=== PATIENT | female | born 1960 | race Caucasian/White ===

== ENCOUNTER → 2019-12-20 16:16 | Outpatient (REF) | payer OTHER, SELFPAY | LOC: ANHLAB 16:16 | PROVIDERS: PCP Family Medicine; Visit Provider Nurse Practitioner | DX: C43.4 Malignant melanoma of scalp and neck (principal) | CPT/HCPCS: 88305; 88342 ==

== ENCOUNTER → 2020-01-03 14:33 | Outpatient (REF) | payer OTHER, SELFPAY | LOC: ANHLAB 14:33 | PROVIDERS: PCP Family Medicine; Visit Provider Nurse Practitioner | DX: C43.4 Malignant melanoma of scalp and neck (principal) | CPT/HCPCS: 88305 ==

== ENCOUNTER → 2020-08-02 15:51 | Outpatient (REF) | payer OTHER, SELFPAY | LOC: ANHLAB 15:51 | PROVIDERS: PCP Family Medicine; Visit Provider Nurse Practitioner | DX: D49.2 Neoplasm of unspecified behavior of bone, soft tissue, and skin (principal) | CPT/HCPCS: 88305; 88342 ==

== ENCOUNTER → 2020-08-09 13:46 | Outpatient (REF) | payer OTHER, SELFPAY | LOC: ANHLAB 13:46 | PROVIDERS: PCP Family Medicine; Visit Provider Nurse Practitioner | DX: D49.2 Neoplasm of unspecified behavior of bone, soft tissue, and skin (principal) | CPT/HCPCS: 88305 ==

== ENCOUNTER → 2023-01-01 08:45 | Outpatient (CLI) | payer OTHER, SELFPAY ==
--- NOTE | ~2023-01-01 | MR_ITS ---
MRI of the left knee Clinical history: Pain Technique: Coronal proton density and proton density-weighted images, sagittal proton-density and T2 fat-sat images, and axial proton-density fat-saturated images were acquired. Findings: Anterior and posterior cruciate ligaments are intact. Medial collateral ligament and the la teral collateral ligament complex are intact. Popliteus tendon is intact. There is complex tearing of the posterior horn of the lateral meniscus, which is very diminutive. No definite medial meniscal tear identified. There is patchy high-grade chondromalacia of the lateral compartment. There is mild chondral thinning in the medial compartment. There is extensive moderate chondromalacia along lateral patellar facet. Femoral trochlear cartilage is relatively well-preserved. Extensor mechanism is intact. Moderate joint effusion is present. Small Chapman cyst present. Impression: Complex tearing of the posterior horn lateral meniscus, which is very diminutive. Patchy chondromalacia, worst in the lateral compartment and along the lateral patellar facet. Moderate joint effusion with small Chapman's cyst. Reviewed, dictated and finalized at location . Impression: Complex tearing of the posterior horn lateral meniscus, which is very diminutiv e. Patchy chondromalacia, worst in the lateral compartment and along the lateral p atellar facet. Moderate joint effusion with small Chapman's cyst.
== END ==
PROVIDERS: PCP Family Medicine; Visit Provider Family Medicine
DX: S83.282A Other tear of lateral meniscus, current injury, left knee, initial encounter (principal); M94.262 Chondromalacia, left knee; M71.22 Synovial cyst of popliteal space [Baker], left knee; X58.XXXA Exposure to other specified factors, initial encounter
CPT/HCPCS: 73721

== ENCOUNTER 2023-02-11 15:35 | Outpatient (RCR) | payer OTHER, SELFPAY ==
[2023-02-11 16:00] VITALS: BMI 34.5
[2023-02-11 16:24] VITALS: BMI 34.5
== END 2023-04-27 09:53 | disposition home or self-care (01) ==
LOC: ANHDMC 15:35
PROVIDERS: PCP Family Medicine; Visit Provider Physician Assistant
DX: R73.03 Prediabetes (principal); E66.9 Obesity, unspecified; Z71.3 Dietary counseling and surveillance
CPT/HCPCS: 97802

== ENCOUNTER 2024-11-18 14:49 | Outpatient (CLI) | payer OTHER, SELFPAY ==
--- NOTE | ~2024-11-18 | XR_ITS ---
XR ankle LT min 3V Ordering provider: Octavia Romo MD History: . S93.492A - Sprain of other ligament of left ankle, initia... . Comparison: None. FINDINGS: BONES: No acute fracture or dislocation. JOINT SPACES: The ankle mortise is normal. SOFT TISSUES: Soft tissue swelling over both malleoli. Calcaneal spur. Ossification of the insertion of the tendo Achilles. IMPRESSION: No acute osseous abnormality left ankle. Reviewed, dictated and finalized at location A.
--- OUTSIDE RECORDS SUMMARY | 2024-11-18 15:07 | XMS_ITS | Continuity of Care Document ---
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 Name Role Phone Melissa BURDICK FACS, Geovanny Unavailable Unavailabl e Allergies, Adverse Reactions, Alerts Substance Reaction Status Criticality No Known Allergies Active No Inform ation Medications Medication Instructions Dosage Effective Dates (start - stop) Status Comments Combigan 0.2 %-0.5 % eye drops 1 drop bid in OD only - Active Jardiance 10 mg tablet take 1 tablet by oral route every day in the morning 10 MG - Active Januvia 100 mg tablet take 1 tablet by o ral route every day 100 MG - Active rosuvastatin 10 mg tablet take 1 tablet by oral route every day 10 MG - Active metformin 1,000 mg tablet take 1 tablet by oral route 2 times every day with morning and evening meals 1000 MG - Active lisinopril 10 mg tablet take 1 tablet by oral route every day 10 MG - Active levothyroxine 50 mcg tablet take 1 tablet by oral route every day 50 MCG - Active Artificial Tears ([id number] rin) 1 %-0.2 %-0.2 % eye drops - Active Procedures Procedure Date Ophth Serv: Med Exam; Interm E 20 Epilation Of Lashes Est Pt Exp Prob Focused Visual Lynch, Extended Est Pt Exp Prob Focused Postop F/u Visit [facility] Optical [facility]herence [facility] Facility Fee Cataract Extraction 2016 Postop F/u Visit [facility] Extracapsular Cataract Remov I 17 Anes- Eye; Lens Surg Postop F/u Visit [facility] Postop F/u Visit [facility] Postop F/u Visit [facility] Extracapsular Cataract Remov I 17 Facility Fee Cataract Extraction 2016 Anes- Eye; Lens Surg Optical Coherence Biometry Est Pt Complete Est Pt Exp Prob Focused Optical Coherence Biometry [place] Pachymetry Epilation Of Lashes Scan Computerized; Retina New Pt Complete Patient Surgery Education Advance Directives Directive Yes / No Effective Date File Name No Information Encounters Encounter Description Practice Location Reason(s) For Visit Diagnoses Date Provider Providers Copied on Encounter [facility], [address] [place], [place], [id number], [place] tel:[phone] [place] 350 Surgery No Information 0 Melissa Small. [address] [place], [place], [id number], [place]. tel:[phone] [facility], [address] [place], [place], [id number], [place] tel:[phone] [facility] [place] Monocular esotropia, right eye 0 Carkathy Chaudhari. [address] [place], [place], [id number], [place]. tel:[phone] Referring Provider: Luly Claudio, [address] [place], [address] . tel:[phone] Est Pt Exp Prob Focused [facility], [address] [place], [place], [id number], [place] tel:[phone] [facility] [place] 855 Open angle with borderline findings, high risk, bilateralTric hiasis without entropion, left lower lid Sep-2 6-201 7 González Arguetaca. [address] [place], [place], [id number], . tel:[phone] Referring Provider: Luly Claudio, [address] [place], [address] . tel:[phone] Est Pt Exp Prob Focused [facility], [address] [place], [place], [id number], tel:[phone] [facility] [place] 855 Open angle with borderline findings, high risk, bilateral Sep-2 2- 7 González Arguetaca. [address] [place], [place], [id number], . tel:[phone] Referring Provider: Luly Claudio, [address] [place], [address] . tel:[phone] [facility], [address], [place], [id number], tel:[phone] [facility] [place] 855 no complaints OU (chief complaint) Presence of intraocular lens Jan-2 7 González Mauricio. [address] [place], [place], [id number], . tel:[phone] Referring Provider: Timmy Jones, [address], [address] . tel:[phone] [facility], [address] [place], [place], [id number], tel:[phone] [facility] [place] 5250 No Information Jan-0 5 7 Chan Warner. [address] [place], [place], [id number], . tel:[phone] Referring Provider: Timmy Jones, [address] [place], [address] . tel:[phone] [facility], [address] [place], [place], [id number], tel:[phone] [facility] [place] No Information Osman-0 5-201 7 [facility]. [address] [place], [place], [id number], . tel:[phone] Referring Provider: Timmy Jones, [address] [place], [address] . tel:[phone] [facility], [address] [place], [place], [id number], tel:[phone] [facility] [place] 5250 blurry vision OD (chief complaint) Presence of intraocular lens Jovanni-3 0-201 7 Ibrahima Ibrahima. [address] [place] [address], [id number], . tel:[phone] Referring Provider: Timmy Jones, [address], [address] . tel:[phone] [facility], [address] [place], [place], [id number], tel:[phone] [place] 5250 Surgery No Information Jovanni-3 0-201 7 Chan Warner. [address] [place] [address], [id number], . tel:[phone] Referring Provider: Luly Claudio, [address], [address] . tel:[phone] [facility], [address], [place], [id number], tel:[phone] [facility] [place] No Information Jovanni-3 0-201 7 No Information Referring Provider: Timmy Jones, [address], [address] . tel:[phone] [facility], [address] [place], [place], [id number], tel:[phone] [facility] [place] 855 Presence of intraocular lens Jovanni-2 3-201 7 González Mauricio. [address] [place], [place], [id number], [place]. tel:[phone] Referring Provider: Timmy Jones, [address] [place], [address] . tel:[phone] [facility], [address], [place], [place], [id number], [place] tel:[phone] [facility] [place] 5250 blurry vision OD (chief complaint) Presence of intraocular lens Yessenia Sewell. [address], [place], [place], [id number], [place]. tel:[phone] Referring Provider: Donato Casas, [address] [place], [place], [address] . tel:[phone] [facility], [address] [place], [place], [id number], [place] tel:[phone] [facility] [place] 5250 Presence of intraocular lens Yessenia Sewell. [address] [place], [place], [place], [id number], [place]. tel:[phone] Referring Provider: Timmy Jones, [address] [place], [place], [address] . tel:[phone] [facility], [address] [place], [place], [id number], [place] tel:[phone] [place] [facility]250 Surgery No Information Atodarichema Warner. [address], [place], [place], [id number], [place]. tel:[phone] Referring Provider: Luly Claudio, [address] [place], [address] . tel:[phone] [facility], [address], [id number], [place] tel:[phone] [facility] [place] No Information 7 [facility] [place]. [address], [place], [place], [id number], [place]. tel:[phone] Referring Provider: Timmy Jones, [address] [place], [address] . tel:[phone] [facility], [address] [place], [place], [id number], [place] tel:[phone] [facility], [place] No Information Jovanni- Eriwn Devyn. [address], [place], [place], [id number], [place]. tel:[phone] Referring Provider: Timmy Jones, [address] [place], [address] . tel:[phone] [facility], [address] [place], [place], [id number], [place] tel:[phone] [facility] [place] Age-related nuclear cataract, left eyeAge-relate d nuclear cataract, right eyeOpen angle with borderline findings, high risk, bilateralOthe r vitreous opacities, bilateralFuch s' dystrophyTear film insufficiency of bilateral lacrimal glands Chan Warner. [address] [place], [place], [place], [id number], [place]. tel:[phone] Referring Provider: Luly Claudio, [address] [place], [address] . tel:[phone] Est Pt Exp Prob Focused [facility], [address] [place], [place], [id number], [place] tel:[phone] [facility] [place] 5250 Encounter for other preprocedural examination Cesar Norman. [address] [place], [place], [id number], [place]. tel:[phone] Referring Provider: Luly Claudio, [address] [place], [address] . tel:[phone] [facility], [address], [place], [id number], tel:[phone] [facility] [place] [address]55 No Information 7 Chan Warner. [address], [place], [id number], . tel:[phone] Referring Provider: Timmy Jones, [address] [place] [address], [address] . tel:[phone] [facility], [address] [place] [address], [id number], tel:[phone] [facility] [place] 855 Combined forms of age-related cataract, bilateralOthe r vitreous opacities, bilateralTric hiasis without entropion, left lower lidOpen angle with borderline findings, high risk, bilateralKera toconjunctivi tis sicca, bilateral 7 González Mauricio. [address] [place] [address], [id number], . tel:[phone] Referring Provider: Luly Claudio, [address] [place] [address], [address] . tel:[phone] [facility], [facility] [address], [id number], tel:[phone] [facility] [place] [address]55 No Information 7 [facility]. [address], [facility], . tel:[phone] Referring Provider: [facility] , [address] [place] [address], [facility]. tel:[phone] Family History Family Member Type Diagnosis Age At Onset Mother Problem (finding) Diabetes mellitus Father Problem (finding) Diabetes mellitus Payers Payer name Insurance type Covered alliance party ID Authoriza tion(s) No Information Social History Type Description Quantity Date Captured Comments Sex Female Smoking Status No Information Chief Complaint And Reason For Visit No Information Reason For Referral Reason For Referral No Information Plan Of Treatment Date Type Action Status Future Order: Radiology Order OC T Optic Nerve (RNFL) (99469), Ordered on: Ordered Future Order: Radiology Order OC T Retina (73901), Ordered on: Ordered History Of Present Illness Encounter Date Complaint History Of Prese nt Illness no complaints no complaints OU blurry vision blurry vision OD no complaints , VA is great no complaints , VA is great OS Feeling much better, VA is a little blurry Feeling much better, VA is a little blurry OS blurry vision blurry vision OD soreness, fbs, and t earing. Vision is improving. Has soreness, fbs, and tearing. Vision is improving. Has had a few flashes of light this morning temporally. OS soreness, fbs, and t earing. Vision is improving. Has soreness, fbs, and tearing. Vision is improving. Has had a few flashes of light this morning temporally. OS Functional Status Date Functional Assessmen t No Information Instructions Date Instruction Additional Infor alix - Decompensating alistair peterson. Pt has CRET. 4 GABY over OD gave clear, comfortable vision.Recommend 2 GABY over OD, [address] Escamilla for primary eye care. Notes sent. Related to Monocular esotropia, right eye - IOP OD much improv ed on Combigan. Pt denies pain. No rebound iritis s/p cataract surgery few months ago.RNFL OCT 3/17 WNL OD and borderline OS (poor scan due to cataract)VF 9/17 full OU. Continue Combigan BID OD (rx issued to [facility], consider generic Cosopt if too costly) and f/u in ~1 month. Pt educ on findings and importance of monitoring to prevent vision loss. Consider trial s gtts next visit. Related to Open angle with borderline findings, high risk, bilateral - Epilated one lash in office today. Pt educ. 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 Pt denies pain. No rebound iritis s/p cataract surgery few months ago.RNFL OCT 3/17 WNL OD and borderline OS (poor scan due to cataract)VF 9/17 full OU. Due to elevated IOP, start Combigan BID OD (sample given) and f/u in few days. Denies lung dz. Pt educ on findings and importance of monitoring to prevent vision loss. Related to Open angle with borderline findings, high risk, bilateral - Discussed cataract diagnosis with the patient. Risks and benefits of surgical treatment were discussed and understood. Patient elects surgical treatment. Premium options discussed but patient declines and is ok with using glasses after surgery. Patient desires Surgery OS first. after further discussion, does not want monovision (( AIM -0.25 OU: TRIMOXI, NO ORA OU, NO LRI OU: Declined AMP, glaucoma coverage - fuch's )) Discussed with pt the need for glasses after surgery. discussed delayed healing and higher risks with dense lens, fuch's Related to Age-related nuclear cataract, left eye - art tears, Discuss ed with patient, understands this may limit vision after surgery. 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 Discussed with patient, understands this may limit vision after surgery. Related to Open angle with borderline findings, high risk, bilateral - Discussed signs an d symptoms of retinal detachment (flashes,floaters, curtain) as precaution . Patient instructed to call or return to clinic if condition gets worse. Discussed with patient, understands this may limit vision after surgery. Related to Other vitreous opacities, bilateral - PLAN: OK to to pro ceed with cataract surgery after first eye cleared. Related to Age-related nuclear cataract, right eye - Due to cupping OU and elevated IOPs [address] p[address] RNFL OCT 09/19 WNL OD and borderline OS (poor scan due to cataract)Schedule VF after cataract surgery. Pt educ on findings and importance of monitoring. Related to Open angle with borderline findings, high risk, bilateral - Discussed cataract diagnosis with the patient. Discussed and reviewed treatment options for cataracts. Patient elects surgical treatment. Recommend surgery OU, OS first. Aim OD: [place]. Aim OS: [place]. Discussed monovision as well, she will consider.ATIOLs at surgeon's discretion, Fuchs OD>OS. MAC OCT WNL OU. Related to Combined forms of age-related cataract, bilateral - Pt educ on finding s. Retinas are flat and attached OU. Reviewed s/sx of RD and to call lamin if occurs. MAC OCT WNL OU. Related to Other vitreous opacities, bilateral - With nocturnal lag ophthalmos. Discussed lorenzo QHS/sleep mask and turn off ceiling fan (sleeps with fan on), can try humidifier. Discussed rx gtts for dry eye, defers for now. Monitor. Related to Keratoconjunctivitis sicca, bilateral - Epilated 1 lash fr om LLL in office. 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
--- OUTSIDE RECORDS SUMMARY | 2024-11-18 15:07 | XMS_ITS | Clinical Summary ---
Author Organization [facility] Medical Office Building [address] [place] [id number] Care Team Providers Care Voice Teacher Name Role Phone Tad Guardado MD Primary Care Provider Allergies Active Allergy Reactions Criticality Noted Date Comments Adhesive Other (See comments) Low 05/04/2024 Latex Medications amLODIPine (NORVASC) 10 mg tablet 2 Active metFORMIN XR (GLUCOPHAGE XR) 500 mg 24 hr tablet 2 Active triamterene-hyd roCHLOROthiazid e 37.5-25 mg per tablet 2 Active Anoro Ellipta 62.5-25 mcg/actuation blister with device 2 Active traZODone (DESYREL) 50 mg tablet 2 Active phentermine 37.5 mg capsule Take 1 capsule (37.5 mg total) by mouth daily 2 Active losartan (COZAAR) 100 mg tablet Take 1 tablet (100 mg total) by mouth daily Active rOPINIRole (REQUIP) 0.5 mg tablet Take 1 tablet (0.5 mg total) by mouth 3 (three) times a day Active alendronate (FOSAMAX) 10 mg tablet Take 1 tablet (10 mg total) by mouth daily before breakfast Take in the morning with a full glass of water, on an empty stomach, and do not take anything else by mouth or lie down for the next 30 min. Active gabapentin (NEURONTIN) 100 mg capsule [address] SPRINKLER Thyroid 60 mg tablet 4 Active albuterol HFA (PROVENTIL HFA,VENTOLIN HFA,PROAIR HFA) 90 mcg/actuation inhalerIndicati ons:Centrilobul ar emphysema (HCC) Inhale 2 puffs every 6 (six) hours as needed for wheezing Fill per patient's formulary 1 each 3 4 Active Active Problems Problem Noted Date Diagnosed Date Need for immunization against influenza 04/25/20 22 Centrilobular emphysema 10/18/2021 Assessment & Plan (05/04/2024 10:15 AM CDT): Due to continued symptoms, patient will continue with Anoro. The patient has an albuterol inhaler to use on a p.r.n. basis and up to 4 times a day as needed for symptom control Assessment & Plan (05/01/2023 10:36 AM CDT): The patient will continue with Anoro. She states that she is out of the albuterol. I have reordered the albuterol inhaler. The patient denied respiratory symptoms at this time Assessment & Plan (04/25/2022 8:44 AM CDT): Patient continue to use her Anoro one inhalation once a day. Patient continue to use her albuterol inhaler as needed up to 4 times a day for shortness of breath. Assessment & Plan (10/18/2021 8:33 AM CDT): The patient is PFTs from August 2021 are consistent with stage II COPD. She has had symptomatic relief with use of Anoro 1 puff daily. I will order albuterol MDI and give her a spacer to have her use 2 puffs q.i.d. p.r.n.. She otherwise will follow up here in 6 months. Personal history of tobacco use 10/18/2021 Assessment & Plan (05/04/2024 10:14 AM CDT): The patient continues to be tobacco free since 2015. She has a 36 pack year history. I have ordered the patient a lung cancer screening CT for April of 2025 Assessment & Plan (05/01/2023 10:36 AM CDT): The patient continues to be tobacco free. She has a history of 1 pack per day for 36 years. She quit in 2015 Assessment & Plan (04/25/2022 8:45 AM CDT): The patient is going to get her CT scans put on a disc for us to upload into our radiology system. The patient will complete another low-dose screening CT scan for this year. The order has been placed. Assessment & Plan (10/18/2021 8:33 AM CDT): I have asked her to sign a release so that we can obtain a copy of her most recent screening chest CT that she had in 2020. Awaiting removal of contraceptive intrauterine d evice (IUD) 05/22/2015 Weight gain 10/05/2011 Abnormal mammogram 06/11/2011 Encounters Date Type Department Care Team Description 09/16/2024 12:46 PM CDT - 09/16/2024 11:59 PM CDT Hospital Encounter [facility] Medical Office Bl 1 Breast [facility] [address] [place] [address] [place] [address] Screening mammogram, encounter for Discharge Disposition: Discharge to home or self care from Last 3 Months Immunizations Immunization Administration Dates Next Due Influenza, Quadrivalent, Hig h Dose, Preservative Free, Intrr 05/01/2023 Influenza, Quadrivalent, Spl it, Preservative Free, Intramuscular 04/25/2022 Surgical History Surgery Date Site/Laterality Comments GALLBLADDER SURGERY Gallbladder Surgery - (Added by TW Conv) BUNIONECTOMY Hallux Valgus (Bunion) Correction - (Added by TW Conv) BREAST BIOPSY Medical History Medical History Date Comments Asthma Asthma - (Added by TW Conv) Family History Medical History Relation Name Comments Lymphoma Father Malignant Lymph cherelle - (Added by TW Conv) Diabetes Mother Diabetes Mellit us - (Added by TW Conv) Heart disease Mother Heart Disease - (Added by TW Conv) Stroke Mother Stroke Syndrome - (Added by TW Conv) Breast cancer Neg Hx Relation Name Status Comments Father Mother Social History Tobacco Use Types Packs/Day Years Used Date Smoking Tobacco: Former Cigarettes 1 35 Comments No Sex and Gender Information Value Date Recorded Sex Assigned at Not on file Legal Sex Female 6:47 PM NURSE OB Gender Identity Not on file Sexual Orientation Not on file Obstetrics History Para Term AB IAB SAB Ectopic Multiple Livin g Live Births 2 2 2 Date Outcome GA Total Labor Labor/2nd/3rd Weight Sex Type Anes PTL Barb A1 A5 Name Clin Term Term Last Filed Vital Signs Vital Sign Reading Time Taken Comments Blood Pressure 123/74 05/04/2024 9:58 AM CDT Pulse 62 05/04/2024 9:58 AM CDT Temperature 36.4 C (97.5 F) 05/04/2024 9:58 AM CDT Respiratory Rate 16 05/04/2024 9:58 AM CDT Oxygen Saturation 93% 05/04/2024 9:58 AM CDT Inhaled Oxygen Concentration - - Weight 84.4 kg (186 lb) 05/04/2024 9:58 AM CDT Height 157.5 cm (5' 2 ) 05/04/2024 9:58 AM CDT Body Mass Index 34.02 05/04/2024 9:58 AM CDT Plan of Treatment Health Maintenance Due Date Last Done Comments Colon Cancer Screening-Colonoscopy 1958 Depression Screening 1958 Fall Risk Assessment 1960 Hepatitis C Screening 1958 DTaP/Tdap/Td Vaccine (1 - Tdap) 1969 Hepatitis B Screening 1976 Pneumococcal vaccine 65+ (1 of 2 - PCV) 1977 Zoster Vaccine (1 of 2) 2008 Well Visit 65+ 2023 Covid-19 Vaccine (3 - 2023-2 5 season) 2024 08/23/2020, 07/31/2020 Influenza Vaccine (Season Ended) 2025 05/01/2023, 04/25/2022, 04/15/2020, Additional history exists Breast Cancer Screening-Mammogram 09/16/2025 09/16/2024, 07/22/2023, 07/22/2022, Additional history exists Osteoporosis Screening-Bone Density Scan 05/18/2026 05/18/2024, 03/01/2020 Procedures Procedure Name Priority Date/Time Associated Diagnosis Comments SCREENING MAMMOGRAM BILATERAL W ITZ Schedule Routine, Read Routine (OP Routine) 09/16/2024 1:00 PM CDT Screening mammogram, encounter for DEXA AXIAL SKELETON BONE DENSITY 1 OR MORE SITES Schedule Routine, Read Routine (OP Routine) 05/18/2024 8:56 AM NURSE OB Osteoporosis screening from Last 3 Months or Most Recently Relevant to Health Maintenance Results * Screening Mammogram Bilateral W Itz (09/16/2024 1:00 PM CDT) Anatomical Region Laterality Modality Breast Bilateral Mammography Impressions 09/16/2024 1:04 PM CDT BI-RADS ATLAS category (overall): 1 - Negative There is no mammographic evidence of malignancy. A 1 year screening mammogram is recommended. The patient has been or will be contacted. We recommend annual screening mammography for women at average risk of breast cancer beginning at age 40, based on guidelines of the [place] [employer] (ACR Practice Parameter for the Performance of Screening and Diagnostic Mammography) and [place] [employer]. For women with and elevated risk of breast cancer, please refer to the ACR Practice Parameter for specific screening recommendations. The patient will be entered into a reminder system with a target due date of 1 year for her next screening exam. Narrative 09/16/2024 1:04 PM CDT Screening Mammogram Bilateral W Itz: 09/16/24 The study was acquired using full field digital technology and interpreted from soft copy. 2D digital mammographic views, as well as 3D digital tomosynthesis were performed in the CC and MLO projections. CLINICAL: Screening mammogram, encounter for No relevant medical history has been documented for this patient. History of breast cancer in Neg Hx. COMPARISONS: 07/22/2023 Screening Mammogram Bilateral W Itz 07/22/2022 Screening Mammogram Bilateral W Itz 04/10/2021 Screening Mammogram Bilateral W Itz 03/01/2020 Screening Mammogram Bilateral W Itz BREAST TISSUE: There are scattered areas of fibroglandular density. FINDINGS: There is an unchanged biopsy clip in the left breast. There is no new suspicious finding in either breast on mammogram. 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 FINDINGS: AP LUMBAR SPINE L1-L4: Total BMD is 0.858 g/cm2 T-score is -1.7 LEFT HIP: Total BMD is 0.781 g/cm2 T-score is -1.3 This is increased in comparison to prior exam which is not statistically significant. Femoral neck BMD is 0.577 g/cm2 T-score is -2.4 FRAX: 10 year risk for a major osteoporotic fracture is 19 %, 10 year risk for a hip fracture is 3.5 % IMPRESSION: Low Bone Mass. REFERENCE: Bone mineral density: T-Score: Normal (T-score above or = -1.0) Low bone mass (T-score between -1.0 and -2.5) replaces the previously used term osteopenia Osteoporosis (T-score = or below -2.5) Z-Score: Within the expected range for age (Z-score above -2.0) Below the expected range for age (Z-score is -2.0 or below) Please see below follow up recommendations. Medical evaluation for secondary causes of low bone mineral density may be appropriate. FRAX is a World Health Organization validated fracture risk assessment tool that calculates a person's 10 year probability of a major osteoporosis related fracture and hip fracture. According to the National Osteoporosis Foundation guidelines, postmenopausal women and men age 50 or older with low bone mass and a 10 year probability of a major osteoporosis related fracture = or greater than 20% or a 10 year probability of a hip fracture = or greater than 3% should be considered for pharmacological treatment for the prevention of osteoporosis. For further information, including treatment recommendations, please refer to the 2019 ISCD Official Positions (http://www.iscd.org) and the NOF's Clinician's Guide to Prevention and Treatment of Osteoporosis (http://www.nof.org/professionals/clinical-guidelines) THIS IS AN ELECTRONICALLY VERIFIED FINAL REPORT 05/18/2024 3:19 PM - Electronically signed by Laz Brown M.D. MF: JUSTIN Report ID: [id number] Reading Location: [place] [address] Procedure Note Laz Brown MD - 05/18/2024 EXAM DESCRIPTION: DEXA AXIAL SKELETON BONE DENSITY 1 OR MORE SITES REASON FOR STUDY: 64 y/o year old F with given history of:osteoporosis Service Learning Coordinator/Model: [email or web address] A (S/N [id number]) CLINICAL INFORMATION: Current height: 60.5 inches Maximum height: 63 inches Weight: 186 pounds Risk factors: Postmenopausal, adult fracture, cancer COMPARISON: 03/01/2020 Dissimilar scan types or analysis methods precludes assessment for calculating a significant change. FINDINGS: AP LUMBAR SPINE L1-L4: Total BMD is 0.858 g/cm2 T-score is -1.7 LEFT HIP: Total BMD is 0.781 g/cm2 T-score is -1.3 This is increased in comparison to prior exam which is not statistically significant. Femoral neck BMD is 0.577 g/cm2 T-score is -2.4 FRAX: 10 year risk for a major osteoporotic fracture is 19 %, 10 year risk for ahip fracture is 3.5 % IMPRESSION: Low Bone Mass. REFERENCE: Bone mineral density: T-Score: Normal (T-score above or = -1.0) Low bone mass (T-score between -1.0 and -2.5) replaces thepreviously used term osteopenia Osteoporosis (T-score = or below -2.5) Z-Score: Within the expected range for age (Z-score above -2.0) Below the expected range for age (Z-score is -2.0 or below) Please see below follow up recommendations. Medical evaluation forsecondary causes of low bone mineral density may be appropriate. FRAX is a World Health Organization validated fracture risk assessmenttool that calculates a person's 10 year probability of a major osteoporosisrelated fracture and hip fracture. According to the National OsteoporosisFoundation guidelines, postmenopausal women and men age 50 or older with low bonemass and a 10 year probability of a major osteoporosis related fracture = or greater than 20% or a 10 year probability of a hip fracture = or greaterthan 3% should be considered for pharmacological treatment for the preventionof osteoporosis. For further information, including treatment recommendations, please referto the 2019 ISCD Official Positions (http://www.iscd.org) and the NOF's Clinician's Guide to Prevention and Treatment of Osteoporosis (http://www.nof.org/professionals/clinical-guidelines) THIS IS AN ELECTRONICALLY VERIFIED FINAL REPORT 05/18/2024 3:19 PM - Electronically signed by Laz Brown M.D. MF: JUSTIN Report ID: [id number] Reading Location: [place] [address] Octavia Romo MD IM DXA PROCEDURES Eloisa l Result from Last 3 Months or Most Recently Relevant to [place] [address] [facility] C[employer] Care Teams Voice Teacher Relationship Specialty Start Date End Date Tad Guardado MD [address] [facility] [address] [place] [address] PCP - General Family Medicine 09/08/24
--- OUTSIDE RECORDS SUMMARY | 2024-11-18 15:07 | XMS_ITS | Referral Summary ---
Author Organization [facility] Medical Office Building 1 Address [address] [place] [address] Care Team Providers Care Airline Station Agent Name Role Phone Tad Guardado MD Primary Care Provider Encounters Date Type Department Care Team Description 09/16/2024 12:46 PM CDT - 09/16/2024 11:59 PM CDT Hospital Encounter [facility] Medical Office Bl 1 Breast [facility] [address] [facility] [address] [place] [phone] Screening mammogram, encounter for Discharge Disposition: Discharge to home or self care from Last 3 Months Allergies Active Allergy Reactions Criticality Noted Date [...] gabapentin (NEURONTIN) 100 mg capsule 3 Active [employer] Thyroid 60 mg tablet 4 Active albuterol [...] 05/22/2015 Weight gain 10/05/2011 Abnormal mammogram 06/11/2011 Immunizations Immunization Administration Dates Next Due Influenza, Quadrivalent, Hig h Dose, Preservative Free, Intrr 05/01/2023 Influenza, Quadrivalent, Spl it, Preservative Free, Intramuscular 04/25/2022 Social History Tobacco Use Types Packs/Day Years Used Date Smoking Tobacco: Former Cigarettes 1 35 Comments No Sex and Gender Information Value Date Recorded Sex Assigned at Not on file Legal Sex Female 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 PM 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 Gender Identity Not on file Sexual Orientation Not on file Last Filed Vital Signs Vital Sign Reading [...] 05/04/2024 9:58 AM CDT Plan of Treatment Not on file Procedures Procedure Name Priority Date/Time Associated Diagnosis Comments SCREENING MAMMOGRAM BILATERAL W ITZ Schedule Routine, Read Routine (OP Routine) 09/16/2024 1:00 PM CDT Screening mammogram, encounter for DEXA AXIAL SKELETON BONE DENSITY 1 OR MORE SITES Schedule Routine, Read Routine (OP Routine) 05/18/2024 8:56 AM 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 Osteoporosis screening from Last 3 Months or [...] age 40, based on guidelines of the [place] [employer] (ACR Practice Parameter for the Performance of Screening and Diagnostic Mammography) and [place] [employer]. 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 MF: JUSTIN Report ID: [id number] Reading Location: [place] [address] Octavia Romo MD IMG DXA PROCEDURES Eloisa l Result from Last 3 Months or Most Recently Relevant to Health Maintenance Insurance PENDING SALE TO [employer] [employer]ANS Address: [facility] [id number] [place] [address] PENDING SALE TO [employer] [employer] PLANS Address: [facility] [address] [place] [address] Care Teams Airline Station Agent Relationship Specialty Start Date End Date Tad Guardado MD [address] [facility] [address] [place] [address] PCP - General Family Medicine 09/08/24
--- OUTSIDE RECORDS SUMMARY | 2024-11-18 15:07 | XMS_ITS | Clinical Summary ---
Author Organization [facility] Address [address] [place] [address] Care Team Providers Care English Teacher Name Role Phone Unavailable Primary Care Provider Unavailabl e Source Comments [facility],non-owned Affiliates and Associated Physician Practices is amultiple site organization consisting of ambulatory clinics and hospital sitesin [place], [place], [place] and [place]. This disclosure is being madepursuant to the Care Everywhere program and may not contain all information available regarding this patient. Last updated [facility] [employer] Social History Tobacco Use Types Packs/Day Years Used Date Smoking Tobacco: Never Assessed Comments Unknown Sex and Gender Information Value Date Recorded Sex Assigned at Not on file Legal Sex Female 9:02 AM CDT Gender Identity Not on file Sexual Orientation Not on file Plan of Treatment Health Maintenance Due Date Last Done Comments BONE DENSITY TESTING 1960 COLOGUARD (AGES 45-75) - COL ON CA SCREENING 1958 COLON MONITORING 1958 COLONOSCOPY - COLON CA SCREENING 1958 CT COLONOGRAPHY - COLON CA SCREENING 1960 Colorectal Cancer Screening 1958 FIT - COLON CA SCREENING 1958 FLEX SIG - COLON CA SCREENING 1958 LIPID TESTING 1960 MAMMOGRAM 1960 HEPATITIS C SCREENING 03/25/1976 DTAP/TDAP/TD VACCINES (1 - Tdap) 1977 PNEUMOCOCCAL VACCINE 50+ (1 of 1 - PCV) 2008 ZOSTER VACCINE (1 of 2) 2008 COVID-19 VACCINE ( - 2023-2 5 season) 2024 DEPRESSION SCREENING 07/06/2024 INFLUENZA VACCINE (Season Ended) 2025 Respiratory Syncytial Virus (RSV) Vaccine Pt: or over 60 yrs (1 - 1-dose 75+ series) 2033 HEPATITIS B VACCINE Aged Out No longe r eligible based on patient's age to complete this topic HIB VACCINE Aged Out No longer eligi ble based on patient's age to complete this topic HPV VACCINE Aged Out No longer eligi ble based on patient's age to complete this topic MENINGOCOCCAL (Group B) VACC INE SHARED DECISION-MAKING Aged Out No longer eligibl e based on patient's age to complete this topic MENINGOCOCCAL GROUPS A/C/Y/W VACCINE Aged Out No longer eligible b ased on patient's age to complete this topic Insurance [facility]
--- OUTSIDE RECORDS SUMMARY | 2024-11-18 15:08 | XMS_ITS | Encounter Summary ---
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 Name Role Phone Unavailable Primary Care Provider Unavailabl e Encounter Details Date Type Department Care Team (Late st Contact Info) Description 12/30/2019 Lab Requisition [facility] [address] [facility] [place] [id number] Breezy Tsang MD [address] [place] [id number] Social History Tobacco Use Types Packs/Day Years Used Date Smoking Tobacco: Never Assessed Comments Unknown Sex and Gender Information Value Date Recorded Sex Assigned at Not on file Legal Sex Female 9:02 AM CDT Gender Identity Not on file Sexual Orientation Not on file documented as of this encounter Plan of Treatment Not on file documented as of this encounter Procedures Procedure Name Priority Date/Time Associated Diagnosis Comments DERMPATH SLIDE CONSULT Routine 12/30/2019 12:00 AM CDT documented in this encounter Results * DERMPATH SLIDE CONSULT (12/30/2019 12:00 AM CDT) Case Report Dermatopathology Report Case: [id number] Authorizing Provider: Breezy Tsang MD Collected: 12/30/2019 12:00 AM Ordering Location: [facility] Received: 12/30/2019 09:35 AM Pathologist: Arden Gibbons MD Specimen: Slide(s), Left posterior neck, OSC# [id number] 0 5:01 PM CDT DERMATOPATHOLOGY LABORATORY Final Diagnosis Specimen A. Slide(s), Left posterior neck, OSC# [id number]: MALIGNANT MELANOMA, SUPERFICIAL SPREADING TYPE (C43.4) BRESLOW DEPTH 0.2 MM, CED LEVEL II PRESENT AT MARGIN (see microscopic description and synoptic report) 0 5:01 PM [facility] DERMATOPATHOLOGY LABORATORY Clinical History Materials received from: [facility] [address] [place] [id number] Received at the request of Dr. Breezy Tsang, a consult will be performed on 4 (H&E, Erin A) slide(s) and 2 block(s) labeled [id number]. Melanoma. All slides returned. Any additional sections, special stains or immunohistochemical stains performed by our laboratory will be kept here on file. 0 5:01 PM [facility] DERMATOPATHOLOGY LABORATORY Microscopic Description Specimen A. Slide(s), Left posterior neck, OSC# [id number]: There is a proliferation melanocytes distributed in an irregular pattern singly and in nests at all levels of the epidermis. In the dermis there are focal irregular nests and single scattered melanocytes. The melanocytes are highlighted by a provided immunostain for Melan-A on block A2. This lesion is present at one tip and one lateral margin of the specimen. 0 5:01 PM [facility] DERMATOPATHOLOGY LABORATORY Disclaimer An external and internal positive and negative controls are appropriate for the histochemical, immunohistochemical and immunofluorescence stain(s) in this case (if any), except where stated explicitly. The performance characteristics of the stain(s) cited in this report were developed and its performance characteristic determined by the Dermatopathology Laboratory at [facility], directed by Dr. Cris Gibbons. These tests need not be, and therefore are not, approved by the [place] Food and Drug Administration. The tests are used for clinical purposes. Billing Codes Specimen Charges Stain Charges 06247 1 0 5:01 PM [facility] DERMATOPATHOLOGY LABORATORY Synoptic Report MELANOMA OF THE SKIN: Excision, Re-Excision (Skin.Melanoma - A) 8th Edition - Protocol posted: 03/02/2019 SPECIMEN Procedure: Excision Specimen Laterality: Left TUMOR Tumor Site: Skin of scalp and neck: Left posterior neck Histologic Type: Superficial spreading melanoma (low-cumulative sun damage (CSD) melanoma) Maximum Tumor (B[place]low) Thickness (Millimeters): At least: 0.2 mm : Tumor is present at the surgical margin of the specimen; therefore, the final depth may exceed the current one. Ulceration: Not identified Anatomic (Ced) Level: At least level: II : Tumor is present at the surgical margin of the specimen; therefore, the fianl depth may exceed the current one. Mitotic Rate: None identified Lymphovascular Invasion: Not identified Neurotropism: Not identified Tumor-Infiltrating Lymphocytes: Present, nonbrisk Tumor Regression: Present, involving less than 75% of lesion MARGINS: Peripheral Margins: Negative for invasive melanoma Status of Melanoma in situ at Peripheral Margins: Melanoma in situ present at margin Deep Margin: Negative for invasive melanoma Status of Melanoma in situ at Deep Margin: Negative for melanoma in situ LYMPH NODES: Regional Lymph Nodes: No lymph nodes submitted or found PATHOLOGIC STAGE CLASSIFICATION (pTNM, AJCC 8th Edition): Primary Tumor (pT): pT1a Regional Lymph Nodes (pN): pNX 0 5:01 PM CDT DERMATOPATHOLOGY LABORATORY Embedded Images 0 5:01 PM CDT DERMATOPATHOLOGY LABORATORY Pathology/Cytolog y SLIDE / Unknown 12/30/2019 12/30/2019 9:35 AM CDT us Breezy Tsang MD LAB - PATHOLOGY/CYTOLOGY ORDER SAMMY Final Result DERMATOPATHOLOGY LABORATORY [facility] - Department of Dermatology [facility]/[address] [address], [facility] [phone] documented in this encounter Visit Diagnoses Not on filedocumented in this encounter
== END 2024-11-18 14:50 | disposition home or self-care (01) ==
PROVIDERS: PCP Family Medicine; Visit Provider Family Medicine
DX: S93.492A Sprain of other ligament of left ankle, initial encounter (principal); R52 Pain, unspecified; X58.XXXA Exposure to other specified factors, initial encounter
CPT/HCPCS: 73610

== ENCOUNTER 2024-12-26 13:28 | Outpatient (CLI) | payer OTHER, SELFPAY ==
--- NOTE | ~2024-12-26 | XR_ITS ---
2 VIEWS THORACOLUMBAR SPINE Ordering provider: Brigid Traylor PA-C History: . M54.9 - Dorsalgia, unspecified . Comparison: None. FINDINGS: VERTEBRAL BODIES: Compression fracture is seen in T11, T12 and L3 which may be acute or chronic. MRI evaluation advised. Mild S-shaped scoliosis. Normal height and alignment. No visible fracture or subl uxation. Degenerative changes of the spine. DISK SPACES: Narrowing of the disc L4-5 and L5-S1. Multilevel facet joint disease. SOFT TISSUES: Atherosclerotic changes of the aorta. IMPRESSION: Loss of height of T11, T12 and L3. MRI evaluation advised. Multilevel degenerative disc disease. Reviewed, dictated and finalized at location A.
== END 2024-12-26 13:29 | disposition home or self-care (01) ==
LOC: MICIMG 13:30
PROVIDERS: PCP Family Medicine; Visit Provider Physician Assistant Medical
DX: M51.369 Other intervertebral disc degeneration, lumbar region without mention of lumbar back pain or lower extremity pain (principal)
CPT/HCPCS: 72080

== ENCOUNTER 2025-01-17 07:42 | Outpatient (CLI) | payer MEDICARE, SELFPAY ==
--- NOTE | ~2025-01-17 | MR_ITS ---
MRI of the lumbar spine Clinical History: Back pain Technique: Axial T2-weighted images, and sagittal T1-weighted, T2-weighted, and T2 fat-sat images wer e acquired. Findings: Acute compression fracture of T9 present, with moderate loss of height and diffuse marrow e cole. Severe chronic compression fracture T8 present. Moderate compression fractures of T11 and T12 a re present, chronic. No fracture or subluxation of the lumbar spine identified. At L1-L2, there is no significant disc bulge or herniation. No spinal canal stenosis or definite neur al foraminal narrowing. At L2-L3, there is minimal disc bulge. There is mild to moderate facet arthropathy. No central canal stenosis. There is advanced left neural foraminal narrowing, and mild right neural foraminal narrowin g. At L3-L4, there is minimal disc bulge with advanced facet arthropathy. No central canal stenosis. The re is moderate right neural foraminal narrowing, and mild left neural foraminal narrowing. At L4-L5, there is disc bulge with small annular fissure. There is severe facet arthropathy. No centr al canal stenosis. There is minimal bilateral neural foraminal narrowing. At L5-S1, there is no disc bulge or herniation. No spinal canal stenosis or neural foraminal narrowin g. Paravertebral soft tissues are unremarkable. Impression: Acute T9 compression fracture, as detailed above. Chronic compression fractures of T8, T11, and T12. Mild to moderate degenerative spondylosis in the lumbar spine, as above. Reviewed, dictated and finalized at [facility]. Impression: Acute T9 compression fracture, as detailed above. Chronic compression fractures of T8, T11, and T12. Mild to moderate degenerative spondylosis in the lumbar spine, as above.
== END 2025-01-17 07:43 | disposition home or self-care (01) ==
LOC: MICIMG 07:43
PROVIDERS: PCP Family Medicine; Visit Provider Family Medicine
DX: M47.896 Other spondylosis, lumbar region (principal); S22.060A Wedge compression fracture of T7-T8 vertebra, initial encounter for closed fracture; S22.070A Wedge compression fracture of T9-T10 vertebra, initial encounter for closed fracture; S22.080A Wedge compression fracture of T11-T12 vertebra, initial encounter for closed fracture; X58.XXXA Exposure to other specified factors, initial encounter
CPT/HCPCS: 72148

== ENCOUNTER 2025-03-07 10:11 | Outpatient (CLI) | payer MEDICARE, SELFPAY ==
--- NOTE | ~2025-03-07 | XR_ITS ---
Examination: XR thoracic spine 3V Clinical History: M54.9 - Dorsalgia, unspecified Comparison: MR lumbar spine 01/17/2025 Technique: 2 views thoracic spine Findings: Severe osteopenia. Upper thoracic vertebra poorly seen on lateral projection. Height loss T6 age-indeterminate. Height loss T7 age-indeterminate. Chronic severe compression deformity T8. Chronic compression deformity T9. [id number] preserved. Chronic height loss T11-T12. Visualized heart and lungs without acute abnormality. IMPRESSION: 1. Multilevel compression deformity as above. 2. T6 and T7 age-indeterminate but probably chronic. 3. T8 and down chronic. Reviewed, dictated and finalized at location R.
== END 2025-03-07 10:12 | disposition home or self-care (01) ==
LOC: MICIMG 10:12
PROVIDERS: PCP Family Medicine; Visit Provider Nurse Practitioner Adult Health
DX: M54.9 Dorsalgia, unspecified (principal)
CPT/HCPCS: 72072